=== PATIENT | male | born 1960 ===

== ENCOUNTER 2018-04-24 09:05 | Day surgery (SDC) | payer OTHER ==
[2018-04-24] MEDS ORDERED: LR 1,000 ML IV ONE (09:12)
[2018-04-24] MEDS ORDERED: ceFAZolin 2 GM/DEXTROSE 100 ML IV ONE (09:12)
--- NOTE | 2018-04-24 09:59 | PDHPUP ---
History & Physical Update H&P update statement: This history and physical update is based on an assessment of the patient which was completed after admission or registration (within 24 hours), but prior to the surgery/procedure. H&P update: H&P reviewed & patient examined, no change in patient's condition since H&P completed
--- NOTE | 2018-04-24 10:00 | PDANEPAE ---
ANE History of Present Illness bi-lateral laproscopic hernia repair ANE Past Medical History - Cardiovascular History Hx Hypertension: Yes Hx Arrhythmias: No Hx Chest Pain: No Hx Coronary Artery / Peripheral Vascular Disease: No Hx CHF / Valvular Disease: No Hx Palpitations: No Cardiovascular History Comment: INTERMITTENT PVC'S - Pulmonary History Hx COPD: No Hx Asthma/Reactive Airway Disease: No Hx Recent Upper Respiratory Infection: No Hx Oxygen in Use at Home: No Hx Sleep Apnea: No Sleep Apnea Screening Result - Last Documented: Positive - Neurologic History Hx Cerebrovascular Accident: No Hx Seizures: No Hx Dementia: No - Endocrine History Hx Diabetes: No - Renal History Hx Renal Disorders: No - Liver History Hx Hepatic Disorders: No - Neurological & Psychiatric Hx Hx Neurological and Psychiatric Disorders: No - Cancer History Hx Cancer: Yes Cancer History Comment: SKIN - Congenital Disorder History Hx Congenital Disorders: No - GI History Hx Gastrointestinal Disorders: No - Other Health History Other Health History: ED - Chronic Pain History Chronic Pain: Yes (JUANITA ING HERNIA) - Surgical History Prior Surgeries: CERVICAL FUSION -1985 ANE Review of Systems Review of Systems: - Exercise capacity METS (RN): 4 METS ANE Patient History - Allergies Allergies/Adverse Reactions: carvedilol Allergy (Verified 04/21/18 10:45) DEVELOPED COUGH lisinopril Allergy (Verified 04/21/18 11:32) DEVELOPED A COUGH - Home Medications Home medications: home medication list seen and reviewed Home Medications: Herbals/Supplements -Info Only DAILY 04/21/18 [Last Taken 04/22/18] Losartan-Hctz 100-25 mg Tab DAILY 04/21/18 [Last Taken 04/23/18] Viagra PRN 04/21/18 [Last Taken 04/21/18] - NPO status NPO Status: no food or drink >8 hours NPO Since - Liquids (Date): 04/24/18 NPO Since - Liquids (Time): 06:00 NPO Since - Solids (Date): 04/23/18 NPO Since - Solids (Time): 20:00 - Anes Hx Anes Hx: no prior problems - Smoking Hx Smoking Status: Heavy smoker - Alcohol Use Alcohol Use: None - Family Anes Hx Family Anes Hx: none Family Hx Anesthesia Complications: NEG ANE Labs/Vital Signs - Vital Signs Blood Pressure: 140/93 Heart Rate: 67 Respiratory Rate: 18 O2 Sat (%): 98 Height: 177.8 cm Weight: 78.018 kg ANE Physical Exam - Airway Neck exam: FROM Mallampati Score: Class 2 Mouth exam: normal dental/mouth exam - Pulmonary Pulmonary: no respiratory distress - Cardiovascular Cardiovascular: regular rate and rhythym - ASA Status ASA Status: II ANE Anesthesia Plan Anesthesia Plan: general endotracheal anesthesia
[2018-04-24] MEDS ORDERED: ONDANSETRON 4 MG/2 ML VIAL ONE (10:15)
[2018-04-24] MEDS ORDERED: PROPOFOL/EMULSION 500 MG/50 ML BOTTLE IV ONE (10:15)
[2018-04-24] MEDS ORDERED: DEXAMETHASONE 4 MG/ML VIAL ONE (10:15)
[2018-04-24] MEDS ORDERED: fentaNYL 100 MCG/2 ML INJ ONE ×3 (10:15→13:56)
[2018-04-24] MEDS ORDERED: LIDOCAINE 2% 100 MG/5 ML SYR ONE (10:16)
[2018-04-24] MEDS ORDERED: ROCURONIUM 50 MG/5 ML VIAL ONE (10:16)
[2018-04-24] MEDS ORDERED: BUPIVACAINE 0.5% 30 ML SDV ONE (10:39)
[2018-04-24] MEDS ORDERED: METOCLOPRAMIDE 10 MG/2 ML VIAL IVP PRN (11:11)
[2018-04-24] MEDS ORDERED: ONDANSETRON 4 MG/2 ML VIAL IVP PRN (11:11)
[2018-04-24] MEDS ORDERED: PROMETHAZINE HCL 25 MG/ML INJ IVP PRN (11:11)
[2018-04-24] MEDS ORDERED: DEXAMETHASONE 4 MG/ML VIAL IVP PRN (11:11)
[2018-04-24] MEDS ORDERED: ALBUTEROL 3 ML DEYVIAL IH PRN (11:11)
[2018-04-24] MEDS ORDERED: PHENYLEPHRINE HCL 100 MCG/ML SYR IVP PRN (11:11)
[2018-04-24] MEDS ORDERED: NALOXONE HCL 0.4 MG/ML INJ IVP PRN (11:11)
[2018-04-24] MEDS ORDERED: LR 500 ML IV PRN (11:11)
[2018-04-24] MEDS ORDERED: HYDROCODONE/APAP 5/325 TAB PO PRN (11:11)
[2018-04-24] MEDS ORDERED: MEPERIDINE 25 MG/0.5 ML AMP IVP PRN (11:11)
[2018-04-24] MEDS ORDERED: ACETAMINOPHEN 500 MG TAB PO PRN (11:11)
[2018-04-24] MEDS ORDERED: NEOSTIGMINE METHYLSULFATE 5 MG/5 ML SYR ONE (11:26)
[2018-04-24] MEDS ORDERED: GLYCOPYRROLATE 0.2 MG/1 ML VIAL ONE ×3 (11:26)
--- NOTE | 2018-04-24 11:43 | POSTOPPROG ---
Post Op Note Date of Operation: 04/24/18 Surgeon: Benson Hernandez Collar Starcher: Hailey Anesthesiologist: Viraj Anesthesia: GET(General Endotracheal) Pre-op Diagnosis: Bilateral inguinal hernias Post-op Diagnosis: same, umbilical hernia Indication: pain Procedure: open umbilical hernia repair and lap BIH repairs Findings: Bilateral direct inguinal hernias Inf/Abcess present in the surg proc area at time of surgery?: No Depth: Deep Incisional (Fascial) EBL: Minimal
[2018-04-24] MEDS: fentaNYL 100 MCG/2 ML INJ IVP PRN ×4 (12:06→14:18)
--- NOTE | 2018-04-24 13:05 | POSTANESTH ---
Post Anesthetic Evaluation Cardiovascular Status: Normal, Stable Respiratory Status: Normal, Stable Level of Consciousness/Mental Status: Can Participate in Eval Pain Control: Adequate, Prn Tx Ordered Nausea/Vomiting Control: Adequate, Prn Tx Ordered Complications Possibly Related to Anesthesia: None Noted
[2018-04-24] MEDS ORDERED: oxyCODONE IR 5 MG TAB ONE (13:57)
[2018-04-24] MEDS: oxyCODONE IR 5 MG TAB PO PRN ×2 (14:06→14:46)
[2018-04-24 15:38] VITALS: BP 130/80
--- NOTE | 2018-05-03 17:16 | GOP ---
DATE OF OPERATION: 04/24/2018 SURGEON: Benson Hernandez MD ACOUSTICAL CARPENTER: Natalya Hart NP. ANESTHESIOLOGIST: Hilton Cali MD. PREOPERATIVE DIAGNOSIS: Bilateral inguinal hernias. POSTOPERATIVE DIAGNOSIS: Bilateral inguinal hernias plus umbilical hernia. PROCEDURE PERFORMED: Open umbilical hernia repair and laparoscopic bilateral inguinal herniorrhaphy. FINDINGS: He was found to have bilateral direct inguinal hernias with no indirect sacs. He also had a 1.5 cm umbilical defect. ESTIMATED BLOOD LOSS: Negligible. DESCRIPTION OF PROCEDURE: The patient was taken to the operating room where he received satisfactory general endotracheal anesthesia by Dr. Cali. He was placed in a supine position, and prepped and d raped in the usual sterile fashion. An infraumbilical incision was made. Dissection was carried shaun n through the subcutaneous tissue down to the fascia. The umbilical hernia sac was dissected free fr om the skin of the umbilicus and the surrounding subcutaneous tissue. The sac was opened at the fasc ial level, and its contents were reduced. The defect was closed directly with 0 Surgilon figure-of-e ight sutures. The wound was infiltrated with 0.5% Marcaine. A transverse incision was then made mor e inferiorly in the rectus sheath. A subfascial tunnel was developed in the preperitoneal space that was dissected free with a balloon dissector, which was replaced with a CO2 insufflation trocar. Two other trocars were placed in the midline under direct vision. Cruz ligament was exposed bilateral ly. The cords were mobilized bilaterally. The peritoneum was dissected off the cord structures. Th ere were no significant indirect sacs. Bilateral direct defects were freed up, and their contents we re reduced. Bilateral Covidien polyester mesh patches were placed over the inguinal floor and anchor ed in place with AbsorbaTack, securing them to Cruz ligament, to the lacunar ligament, the anterior abdominal wall, and the lateral abdominal wall outside the internal ring. Hemostasis was assured. Trocars were removed under direct vision. Trocar sites were closed with 0 Vicryl for the fascia and a 4-0 Monocryl subcuticular stitch for the skin. The umbilical site was closed with 3-0 Vicryl for t he subcutaneous tissue and a 4-0 Monocryl subcuticular stitch for the skin, and it, too, was infiltra juan with 0.5% Marcaine. COMPLICATIONS: None. DISPOSITION: Taken to the recovery room in good condition. /[id number]/MODL
== END 2018-04-24 15:35 | disposition home or self-care (01) ==
LOC: FSGY 09:05
PROVIDERS: ATTEND Surgery
DX: K40.20 Bilateral inguinal hernia, without obstruction or gangrene, not specified as recurrent (principal); K42.9 Umbilical hernia without obstruction or gangrene
CPT/HCPCS: C1727; C1781; J0690; J1100; J2001; J2270; J2405; J2704; J2710; J3010